=== PATIENT | male | born 1965 | race African-American/Black ===

== ENCOUNTER 2018-01-24 23:59 | Emergency (ER) | payer SELFPAY ==
[~2018-01-24] VITALS: Ht 177.8 cm; Wt 86.2 kg
[2018-01-25 00:32] VITALS: BP 128/83
[2018-01-25] MEDS ORDERED: FLUORESCEIN SODIUM OPHTH 1 EA STRIP ONE (00:54)
[2018-01-25] MEDS ORDERED: TETRACAINE HCL/PF 0.5% UD 2 ML BOTTLE ONE (00:54)
[2018-01-25] MEDS ORDERED: TETRACAINE HCL 2% OPHTHALIC 30 ML BOTTLE EACHEYE ONE (01:00)
[2018-01-25] MEDS ORDERED: FLUORESCEIN SODIUM OPHTH 1 EA STRIP OP ONE (01:00)
== END 2018-01-25 01:46 | disposition home or self-care (01) ==
LOC: ER 23:59
DX: S05.02XA Injury of conjunctiva and corneal abrasion without foreign body, left eye, initial encounter (principal); G45.3 Amaurosis fugax; X58.XXXA Exposure to other specified factors, initial encounter; Y93.89 Activity, other specified; Y92.89 Other specified places as the place of occurrence of the external cause; Y99.8 Other external cause status
CPT/HCPCS: A4606; Z7610

== ENCOUNTER 2018-02-05 10:34 | Inpatient (IN) | payer SELFPAY ==
[~2018-02-05] VITALS: Ht 177.8 cm; Wt 84.4 kg
--- NOTE | 2018-02-05 10:42 | NUR ---
A/OX4, AMBULATORY IN A STEADYGAIT TO ED BED 10 C/O LEFT SIDED CHEST DISCOMFORT STARTED 4 DAYS AGO. PT STATED HE HAD LEF ARM NUMBNESS WELL BUT NONE AT THIS TIME. NAD, VSS RR EVEN AND UNLABORED. SKIN IS WARM AND NON DIAPHROETIC. ALL NEEDS ARE ATTENDED, KEPT WARM AND COMFORTABLE. PENDING ER MD FOSTER
[2018-02-05] MEDS ORDERED: ASPIRIN 325 MG TABLET ONE (10:51)
--- NOTE | 2018-02-05 10:55 | NUR ---
EKG IN PROGRESS AT BEDSIDE.
[2018-02-05] MEDS ORDERED: ASPIRIN 325 MG TABLET PO ONE (11:00)
[2018-02-05 11:06] LABS: HEMATOCRIT 40 % (39-51); MEAN CORPUSCULAR HEMOGLOBIN 26 PG (26.0-33.0); MEAN CORPUSCULAR HGB CONC 33 g/dl (31.0-36.0); MEAN CORPUSCULAR VOLUME 78 fL (80-96); RED BLOOD CELL COUNT(AUTO) 5.07 MIL/uL (4.5-6.0)
[2018-02-05 11:07] LABS: BASOPHILS % (AUTO) 0.7 % (0.0-2.0); EOSINOPHILS % (AUTO) 8.5 % (0.0-6.0); LYMPHOCYTES % (AUTO) 22.1 % (20.0-44.0); MONOCYTES % (AUTO) 10.3 % (2.0-12.0); NEUTROPHILS % (AUTO) 58.4 % (43.0-81.0); PLATELET COUNT (AUTO) 469 /CMM (150-450); RDW COEFFICIENT OF VARIATION 18.4 (11.5-15.0)
[2018-02-05 11:08] LABS: CALCIUM, SERUM 9.2 mg/dL (8.5-10.1); CREATININE 1.5 mg/dL (0.6-1.3); POTASSIUM 3.6 mmol/L (3.5-5.1)
[2018-02-05 11:19] LABS: TROPONIN I 0.723 ng/mL (0.00-0.056)
--- NOTE | 2018-02-05 11:27 | NUR ---
PAGED [facility].
[2018-02-05] MEDS ORDERED: LISI-603 PO (11:36)
[2018-02-05] MEDS ORDERED: ASPI-1169 PO (11:36)
[2018-02-05] MEDS ORDERED: HYDR50TA3 PO (11:36)
--- NOTE | 2018-02-05 12:33 | NUR ---
ASSIGNED TO TELE RM#: [id number], DX: [id number], ACCEPTING: SOLE YOUNG
--- NOTE | 2018-02-05 12:43 | NUR ---
REPORT GIVEN TO BRANT HWANG FOR CONT OF CARE.
[2018-02-05 13:05] VITALS: BP 134/77
--- NOTE | 2018-02-05 13:08 | NUR ---
Pt transferred to floor via acls protocol.
[2018-02-05] MEDS ORDERED: ACETAMINOPHEN 325 MG TABLET PO PRN (14:00)
[2018-02-05] MEDS ORDERED: HYDROCODONE/APAP 5/325MG 1 EACH TABLET PO PRN (14:00)
[2018-02-05] MEDS ORDERED: MAGNESIUM HYDROXIDE 30 ML UDC PO PRN (14:00)
[2018-02-05] MEDS ORDERED: MORPHINE SULFATE INJ 2 MG/ML DISP.SYRIN IV PRN (14:00)
[2018-02-05] MEDS ORDERED: ZOLPIDEM TARTRATE 5 MG TABLET PO PRN (14:00)
[2018-02-05] MEDS ORDERED: NITROGLYCERIN 0.4 MG/TAB BOTTLE SL PRN (14:00)
[2018-02-05] MEDS ORDERED: ONDANSETRON HCL/PF 4 MG/2 ML VIAL IVP PRN (14:00)
[2018-02-05] MEDS: IV NS 0.9% 1,000 ML IV PRN (15:18)
[2018-02-05] MEDS: HEPARIN SODIUM, PORCINE 5000 UNITS/1 ML VIAL SQ SCH (15:21)
[2018-02-05 16:00] VITALS: BP 136/80
--- NOTE | 2018-02-05 18:19 | NUR ---
RN ADMITTING NOTES: 1400h REC'D REPORT FROM SUREKHA OSBORNE RN. 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 PT INITIALLY ADMITTED TO RM 112/1 BUT REQUESTED TO BE TRANSFERRED TO RM 108, TELE STATUS. PT IS A/O X4, DENIES CHEST PAIN/ DISCOMFORT AT THIS TIME. ON ROOM AIR, NO SOB. PLACED ON TELEMONITOR, SR 79 BPM. HAS L AC G20, SL, FLUSHING WELL, C/D/I, NO S/SX OF INFECTION/INFILTRATION NOTED. SKIN IS INTACT. PT ABLE TO AMBULATE W/ STEADY GAIT. PT ORIENTED TO ROOM. PROVIDED COMFORT & SAFETY MEASURES. BED KEPT LOW & IN LOCKED POS. CALL LIGHT PLACED W/IN REACH. AT BEDSIDE. 1530h PT SEEN & EXAMINED BY COBY WHIPPLE W/ ORDERS OF TROP I & ECG AT 5PM. 1819h SOLE MADE AWARE OF ECG & TROP I RESULTS. AWAITING RESPONSE. NO CHANGE OF CONDITION NOTED W/IN SHIFT, NO C/O CHEST PAIN/ WEAKNESS. WILL ENDORSE TO PM RN FOR JEFFREY.
[2018-02-05 20:00] VITALS: BP 134/79
[2018-02-05] MEDS ORDERED: ENOXAPARIN SODIUM 40 MG/0.4 ML DISP.SYRIN SQ SCH (21:00)
--- NOTE | 2018-02-05 23:32 | NUR ---
RN NOTE RECEIVED PHONE CALL FROM LAB : TROPONIN WENT UP FROM 0.689 TO [phone], NOTIFIED DR VALDEMAR NOBLE, NO NEW ORDERS GIVEN AT THIS TIME, WILL CONTINUE TO MONITOR Addendum: 02/06/18 at 0142 by ANGELA MÉNDEZ RN NO CHEST PAIN OR DISCOMFORT NOTED
[2018-02-06] VITALS: BP 124/73
[2018-02-06] MEDS: HEPARIN SODIUM, PORCINE 5000 UNITS/1 ML VIAL SQ SCH ×2 (02:16→13:57)
[2018-02-06 04:00] VITALS: BP 102/66
[2018-02-06] MEDS: IV NS 0.9% 1,000 ML IV PRN (05:52)
[2018-02-06 06:27] LABS: BASOPHILS % (AUTO) 0.4 % (0.0-2.0); EOSINOPHILS % (AUTO) 5.7 % (0.0-6.0); HEMATOCRIT 38 % (39-51); HEMOGLOBIN 12.7 g/dL (13.5-17.5); LYMPHOCYTES # (AUTO) 1.5 /CMM (0.8-4.8); LYMPHOCYTES % (AUTO) 21.6 % (20.0-44.0); MEAN CORPUSCULAR HEMOGLOBIN 26 PG (26.0-33.0); MEAN CORPUSCULAR HGB CONC 33 g/dl (31.0-36.0); MEAN CORPUSCULAR VOLUME 79 fL (80-96); MONOCYTES # (AUTO) 0.6 /CMM (0.1-1.30); MONOCYTES % (AUTO) 8.6 % (2.0-12.0); NEUTROPHILS # (AUTO) 4.3 /CMM (1.8-8.9); NEUTROPHILS % (AUTO) 63.7 % (43.0-81.0); PLATELET COUNT (AUTO) 417 /CMM (150-450); RDW COEFFICIENT OF VARIATION 17.4 (11.5-15.0); RED BLOOD CELL COUNT(AUTO) 4.87 MIL/uL (4.5-6.0); WHITE BLOOD COUNT (AUTO) 6.8 K/uL (4.3-11.0)
[2018-02-06 06:40] LABS: CALCIUM, SERUM 8.3 mg/dL (8.5-10.1); CREATININE 1.4 mg/dL (0.6-1.3); PHOSPHORUS 3.3 mg/dL (2.5-4.9); POTASSIUM 3.4 mmol/L (3.5-5.1)
--- NOTE | 2018-02-06 06:56 | NUR ---
RN NOTE NO ACUTE CHANGES ON MY SHIFT, PATIENT RESTED WELL AT NIGHT, NO DISTRESS NOTED, NO CHEST PAIN OR DISCOMFORT NOTED, IS BY BEDSIDE, WILL ENDORSE TO AM SHIFT FOR JEFFREY
--- NOTE | 2018-02-06 07:10 | NUR ---
RN INITIAL NOTES RECEIVED PT AWAKE, A/OX4. ON ROOM AIR. NO RESPIRATORY DISTRESS NOTED. NO SOB NOTED. DENIES ANY PAIN. IV LINE IN PLACE. PT CONTINENT, AMBULATORY. PT COMFORTABLE. CALL LIGHT WITHIN REACH. WILL MONITOR.
[2018-02-06 08:00] VITALS: BP_SYST 110; BP_DIAS 61; BP_DIAS 66
--- NOTE | 2018-02-06 09:15 | NUR ---
RN NOTES SEEN AND EXAMINED BY DR JERRY. AWARE OF CURRENT LAB VALUES NAD IMAGING STUDIES. ORDERED REPLACEMENT FOR POTASSIUM. ORDERED CT [facility] WITH 3D IMAGE AND EKG IN AM. WILL OBTAIN CONSENT. VS WNL. WILL MONITOR.
[2018-02-06] MEDS: ATORVASTATIN 40 MG TABLET PO SCH (09:49)
[2018-02-06] MEDS: ASPIRIN 81 MG TAB.CHEW PO SCH (09:49)
[2018-02-06] MEDS: POTASSIUM CHLORIDE 20 MEQ TAB.PRT.SR PO SCH ×2 (09:50→10:52)
[2018-02-06 10:01] LABS: THYROID STIMULATING HORMONE 1.276 uIU/mL (0.358-3.74)
[2018-02-06] MEDS: METOPROLOL TARTRATE 50 MG TABLET PO SCH ×3 (11:11→23:17)
[2018-02-06 12:00] VITALS: BP 133/77
[2018-02-06] MEDS ORDERED: METO50TA16 PO (12:51)
[2018-02-06] MEDS ORDERED: ATOR40TA PO (12:51)
--- NOTE | 2018-02-06 13:00 | NUR ---
RN NOTES SEEN AND EXAMINED BY SOLE YOUNG NP. AWARE OF LAB VALUES: WBC: 6.8, HGB 12.7, HCT 38, PLATELET 417. SODIUM 140, POTASSIUM 3.4, REPLACED. PT FOR CT [facility] WITH 3D IMAGE. WILL MONITOR.
[2018-02-06] MEDS ORDERED: METOPROLOL TARTRATE INJ 5 MG/5 ML AMPUL IVP STA (13:43)
--- NOTE | 2018-02-06 14:27 | NUR ---
RN NOTES HEPARIN SQ NOT GIVEN. PT FOR CT ANGIO WITH 3D IMAGES.
[2018-02-06] MEDS: METOPROLOL TARTRATE INJ 5 MG/5 ML AMPUL IVP PRN ×2 (14:34→14:58)
[2018-02-06] MEDS ORDERED: NITROGLYCERIN 0.4 MG/TAB BOTTLE ONE (15:28)
[2018-02-06] MEDS ORDERED: CT SWABBABLE VALVE TRANS SET 1 EA INFUS.SET MC ONE (15:28)
[2018-02-06] MEDS ORDERED: IOHEXOL-350 100 ML VIAL IV ONE (15:28)
[2018-02-06] MEDS ORDERED: METOPROLOL TARTRATE INJ 5 MG/5 ML AMPUL ONE (15:28)
[2018-02-06] MEDS ORDERED: IV NS 0.9% 250 ML IV ONE (15:28)
[2018-02-06 16:00] VITALS: BP 126/64
--- NOTE | 2018-02-06 16:05 | NUR ---
RN NOTES [address] ANGIO WITH 3D IMAGE. PT A/OX4. DENIES ANY PAIN. NO SOB NOTED. LEFT IN STABLE CONDITION ACCOMPANIED BY ERI ROSS. 1600 PT BACK FROM PROCEDURE. PT REMAINS A/OX4. VS WNL. NO SON NOTED. DENIES ANY PAIN. WILL MONITOR
--- NOTE | 2018-02-06 18:29 | NUR ---
RN CLOSING NOTES PT REMAINS STABLE. NO SIGNIFICNAT CHANGE NOTED. IV LINE IN PLACE. KEPT CLEAN AND DRY. ALL NEEDS ATTENDED AND MET. CALL LIGHT TEODORA FLOREZ. WILL ENDORSE FOR CONTINUITY OF CARE.
[2018-02-06 20:00] VITALS: BP 123/70
[2018-02-07] VITALS: BP 125/72
[2018-02-07] MEDS: HEPARIN SODIUM, PORCINE 5000 UNITS/1 ML VIAL SQ SCH ×2 (02:54→14:41)
[2018-02-07 04:00] VITALS: BP 114/66
[2018-02-07] MEDS: METOPROLOL TARTRATE 50 MG TABLET PO SCH ×3 (05:43→17:43)
[2018-02-07 06:27] LABS: ALBUMIN 2.7 g/dL (3.4-5.0); BILIRUBIN,TOTAL 0.2 mg/dL (0.2-1.0); CALCIUM, SERUM 8.7 mg/dL (8.5-10.1); CREATININE 1.5 mg/dL (0.6-1.3); PHOSPHORUS 3.3 mg/dL (2.5-4.9); POTASSIUM 3.8 mmol/L (3.5-5.1); TOTAL PROTEIN, SERUM 7.1 g/dL (6.4-8.2)
--- NOTE | 2018-02-07 06:32 | NUR ---
RN NOTE PATIENT IS STABLE, RESTED WELL AT NIGHT, NO CHEST PAIN OR DISCOMFORT NOTED, CONSENT FOR NUCLEAR MYOCARDIAL STRESS IS AVAILABLE IN THE CHART, ALL SAFETY MEASURES TAKEN, WILL ENDORSE TO AM SHIFT FOR JEFFREY
[2018-02-07 06:34] LABS: TROPONIN I 0.614 ng/mL (0.00-0.056)
[2018-02-07 07:05] LABS: BASOPHILS # (AUTO) 0.1 /CMM (0.0-0.2); BASOPHILS % (AUTO) 1.5 % (0.0-2.0); EOSINOPHILS % (AUTO) 11.7 % (0.0-6.0); HEMATOCRIT 36 % (39-51); HEMOGLOBIN 12.3 g/dL (13.5-17.5); LYMPHOCYTES # (AUTO) 1.4 /CMM (0.8-4.8); LYMPHOCYTES % (AUTO) 29.3 % (20.0-44.0); MEAN CORPUSCULAR HEMOGLOBIN 27 PG (26.0-33.0); MEAN CORPUSCULAR HGB CONC 34 g/dl (31.0-36.0); MEAN CORPUSCULAR VOLUME 79 fL (80-96); MONOCYTES # (AUTO) 0.7 /CMM (0.1-1.30); MONOCYTES % (AUTO) 14.5 % (2.0-12.0); PLATELET COUNT (AUTO) 405 /CMM (150-450); RDW COEFFICIENT OF VARIATION 17.5 (11.5-15.0); RED BLOOD CELL COUNT(AUTO) 4.63 MIL/uL (4.5-6.0); WHITE BLOOD COUNT (AUTO) 4.8 K/uL (4.3-11.0)
[2018-02-07 08:00] VITALS: BP 111/71
[2018-02-07] MEDS: ASPIRIN 81 MG TAB.CHEW PO SCH (08:42)
[2018-02-07] MEDS: ATORVASTATIN 40 MG TABLET PO SCH (08:43)
[2018-02-07] MEDS ORDERED: REGADENOSON 0.4 MG/5 ML DISP.SYRIN IVP ONE (10:00)
[2018-02-07 12:41] VITALS: BP 133/83
[2018-02-07 16:00] VITALS: BP 137/73
[2018-02-07 17:43] VITALS: BP 137/73
--- NOTE | 2018-02-07 18:09 | NUR ---
NO C/O PAIN. NO DISTRESS NOTED. EATING WELL. VOIDING WELL. AMBULATES INDEPENDENTLY. AT BEDSIDE. BED LOW AND LOCKED. CALL LIGHT WITHIN REACHED. WILL CONT TO MONITOR.
== END 2018-02-07 19:00 | disposition home or self-care (01) | DRG 280 ==
LOC: ER 10:36 → TELE1 12:50 → MEDSG1 02-07 12:02
PROVIDERS: ADMIT Nurse Practitioner Acute Care; ATTEND Nurse Practitioner Acute Care
DX: I21.A1 Myocardial infarction type 2 (principal); N17.0 Acute kidney failure with tubular necrosis; K51.90 Ulcerative colitis, unspecified, without complications; E78.5 Hyperlipidemia, unspecified; I25.10 Atherosclerotic heart disease of native coronary artery without angina pectoris; I12.9 Hypertensive chronic kidney disease with stage 1 through stage 4 chronic kidney disease, or unspecified chronic kidney disease; N18.9 Chronic kidney disease, unspecified; D47.3 Essential (hemorrhagic) thrombocythemia; D63.8 Anemia in other chronic diseases classified elsewhere
CPT/HCPCS: 36415; 71045-TC; 75574; 80048-TC; 80053-TC; 80061-TC; 82306; 83735-TC; 84100-TC; 84439-TC; 84443-TC; 84484-TC; 85025-TC; 87081-TC; 93307-TC; A4606; A9502; J1644; J2785; J3490; J7030; J7050; Q9967; Z7610